=== PATIENT | female | born 1965 | race Caucasian/White ===

== ENCOUNTER 2016-07-01 06:01 | Day surgery (SDC) | payer OTHER ==
[~2016-07-01 06:01] MED LIST: cefOXitin SODIUM 1 GM in D5W 50 ML IV ONE
[2016-07-01] MEDS ORDERED: LIDOCAINE 1% 5 ML SDV ONE (06:33)
[2016-07-01] MEDS ORDERED: BUPIVACAINE/EPI 0.5% 30 ML SDV ONE (06:51)
[2016-07-01] MEDS ORDERED: MIDAZOLAM 2 MG/2 ML VIAL ONE (07:32)
[2016-07-01] MEDS ORDERED: PROPOFOL/EMULSION 500 MG/50 ML BOTTLE IV ONE (07:39)
[2016-07-01] MEDS ORDERED: fentaNYL 100 MCG/2 ML INJ ONE ×3 (07:39→09:17)
[2016-07-01] MEDS ORDERED: KETOROLAC 30 MG/1 ML SDV ONE (07:40)
[2016-07-01] MEDS ORDERED: LIDOCAINE 2% 5 ML SDV ONE (07:40)
[2016-07-01] MEDS ORDERED: DEXAMETHASONE 4 MG/ML VIAL ONE (07:40)
[2016-07-01] MEDS ORDERED: ONDANSETRON 4 MG/2 ML VIAL ONE (07:40)
[2016-07-01] MEDS ORDERED: ROCURONIUM 100 MG/10 ML VIAL ONE (07:40)
[2016-07-01] MEDS ORDERED: SKIN ADHESIVE (DERMABOND) 1 EACH TP ONE (08:59)
--- NOTE | 2016-07-01 16:26 | GOP ---
[f rep st] OPERATIVE REPORT DATE OF OPERATION: 07/01/2016 SURGEON: Shay Cornell MD CARDIOPULMONARY PHYSICAL THERAPIST: Valorie Duran MD, whose presence was requested by me and medically necessary for the safe and timely completion of this case. ANESTHESIA: General endotracheal. ANESTHESIOLOGIST: Lucas Johnson MD PREOPERATIVE DIAGNOSIS: 1. Symptomatic cholelithiasis. 2. Umbilical hernia. POSTOPERATIVE DIAGNOSIS: 1. Symptomatic cholelithiasis. 2. Umbilical hernia. PROCEDURE PERFORMED: 1. Single site robotic cholecystectomy. 2. Umbilical hernia repair. FINDINGS: Patient had incarcerated preperitoneal fat. Patient had minimal inflammation of the gallbl adder with some stones. ESTIMATED BLOOD LOSS: 20 cc. INDICATIONS: A 51-year-old female with a history of abdominal pain. Patient had ultrasound demonstra ting gallstones. Patient also had umbilical hernia on exam. Risks and benefits of the procedure were discussed with the patient, questions were answered, and she wished to proceed. DESCRIPTION OF PROCEDURE: The patient was in the supine position. After the induction of adequate ge neral endotracheal anesthesia, the patient was prepped and draped in the standard surgical fashion. M arcaine 0.5% was injected throughout the umbilical area. A transverse incision was made through the umbilicus and carried down to subcutaneous tissue with Bov ie cautery and blunt dissection. The fascia was exposed and divided vertically in the midline. The fa scia was elevated, and the abdomen was carefully entered. A 2.5-cm incision was made and the single s ite trocar was placed carefully. Next, the camera trocar was placed into the single site trocar and t he camera itself followed. The area was inspected and no damage was seen from trocar placement. At this point, the robot was moved into position. The patient was then tilted into reverse Trendelenb urg and the camera port was docked. Next, the special education educational assistant port was placed and the curved robotic arm po rts were placed. These were all placed under direct vision without incident. The robot was fully dock ed and the dissection proceeded robotically. Adhesions were taken down using blunt dissection and Bovie cautery. The cystic structures were then d issected similarly. The cystic duct and cystic artery were clearly identified. In addition, the subhe patic space was dissected. Once this critical view was obtained, the cystic duct and artery were clip ped and divided. The gallbladder was then elevated off the liver bed using Bovie cautery and blunt di ssection. The gallbladder was grasped in the special education educational assistant port. The robot itself was undocked and the patient retu rned to the neutral position. The single site port and special education educational assistant trocar were removed together. The ga llbladder was then extracted. The abdomen was thoroughly irrigated and aspirated. Good hemostasis was noted. The fascia at the trocar site was then closed using 0 Vicryl in a running fashion. Wounds were thorou ghly irrigated. Skin was closed with 4-0 Monocryl in a subcuticular stitch. The wound was then steril jacquelyn dressed. The patient was extubated and taken to PACU in stable condition. COMPLICATIONS: None. DRAINS: None. /[id number]/MODL
== END 2016-07-01 11:50 | disposition home or self-care (01) ==
LOC: FSGY 06:01 → EEVIPCON 08:30 → MERGE 08:30 → FSGY 11:50
PROVIDERS: ATTEND Surgery
PROC: 8E0W8CZ Robotic Assisted Procedure of Trunk Region, Via Natural or Artificial Opening Endoscopic (ICD-10-PCS; 2016-07-01)
PROC: 0FT44ZZ Resection of Gallbladder, Percutaneous Endoscopic Approach (ICD-10-PCS; principal; 2016-07-01 07:30)
PROC: 0WQF0ZZ Repair Abdominal Wall, Open Approach (ICD-10-PCS; 2016-07-01 07:30)
DX: K80.10 Calculus of gallbladder with chronic cholecystitis without obstruction (principal); K42.9 Umbilical hernia without obstruction or gangrene; R10.11 Right upper quadrant pain; J45.909 Unspecified asthma, uncomplicated
CPT/HCPCS: J0697; J1100; J1885; J2250; J2405; J2704; J3010